=== PATIENT | male | born 1935 | race Two or more races ===

== ENCOUNTER → 2017-10-23 | Emergency (ER) | payer OTHER ==
[~2017-10-23] VITALS: Ht 182.9 cm; Wt 72.6 kg
[~2017-10-23] MED LIST: ACID CONTROL150 MG; ASPIR-LOW81 MG; COZAAR25 MG; GLUCOTROL XL5 MG; METFORMIN HCL850 MG; PRILOSEC OTC20 MG; SIMVASTATIN20 MG; TOLTERODINE TART2 MG
== END | disposition home or self-care (01) ==
LOC: ER 09:48
DX: R42 Dizziness and giddiness (principal); J32.0 Chronic maxillary sinusitis